=== PATIENT | female | born 1950 | race Caucasian/White ===

== ENCOUNTER 2021-11-01 12:27 | Emergency (ER) | payer OTHER ==
[2021-11-01 15:09] LABS: BASOPHIL 0.2 % (0-2); EOSINOPHIL 1.1 % (0-7); HCT 39.7 % (37.0-47.0); LYMPHOCYTE 13.8 % (15-48); MCH 29.5 pg (25.0-31.0); MCHC 32.7 g/dL (32.0-36.0); MCV 90.2 fL (78.0-100.0); MONOCYTE 5.1 % (0-12); MPV 9.3 fL (6.0-9.5); NEUTROPHIL 79.4 % (41-80); NRBC 0; PLT 143 K/uL (150-400); RDW 13.6 % (11.5-14.0); WBC 5.7 K/uL (4.0-10.5)
[2021-11-01 15:32] LABS: BUN/CREAT RATIO (CALC) 13.3 RATIO; CREATININE 1.28 mg/dL (0.51-0.95); POTASSIUM 3.4 mmol/L (3.5-5.1)
== END 2021-11-01 16:26 | disposition home or self-care (01) ==
LOC: FER 12:27
PROVIDERS: Emergency Medicine
DX: F41.1 Generalized anxiety disorder (principal); I10 Essential (primary) hypertension; Z79.01 Long term (current) use of anticoagulants; Z79.899 Other long term (current) drug therapy; Z86.73 Personal history of transient ischemic attack (TIA), and cerebral infarction without residual deficits; Z20.822 Contact with and (suspected) exposure to COVID-19
CPT/HCPCS: 36415; 80048; 84484; 85025; 93005; U0002